=== PATIENT | female | born 1990 | race Two or more races ===

== ENCOUNTER 2020-12-18 08:46 | Observation (INO) | payer BC, OTHER ==
[~2020-12-18] VITALS: Ht 170.2 cm; Wt 65.8 kg
[2020-12-18 08:49] VITALS: BP 119/87
[2020-12-18] MEDS ORDERED: ASPI325T4 PO (11:11)
[2020-12-18] MEDS ORDERED: PREN-96 PO (11:11)
[2020-12-18] MEDS ORDERED: TERBUTALINE SULFATE 1 MG/ML 1ML VIAL SC ONE (11:15)
[2020-12-18] MEDS ORDERED: LACTATED RINGER'S 1,000 ML IV ONE (11:30)
== END 2020-12-18 14:10 | disposition home or self-care (01) ==
LOC: ER 08:46 → LDRP 09:14
PROVIDERS: ADMIT Specialist; ATTEND Specialist
DX: O46.92 Antepartum hemorrhage, unspecified, second trimester (principal); O62.9 Abnormality of forces of labor, unspecified; O30.092 Twin pregnancy, unable to determine number of placenta and number of amniotic sacs, second trimester; Z3A.20 20 weeks gestation of pregnancy; Z88.0 Allergy status to penicillin; Z87.891 Personal history of nicotine dependence; Z79.899 Other long term (current) drug therapy
CPT/HCPCS: 59025; 76815; 76817; 81002; 94760; 96360; 96361; 96372; 99285; G0378; J3105